=== PATIENT | male | born 1950 | race Caucasian/White ===

== ENCOUNTER 2018-08-08 13:59 | Day surgery (SDC) | payer OTHER ==
[~2018-08-08] VITALS: Ht 175.3 cm; Wt 83.9 kg
[~2018-08-08 13:59] MED LIST: ALPR.5 PO; ASPI81CH PO; ATOR10 PO; ATOR80; ATOR80 PO; Aspir 8181 MG PO; CARV25; CARV25 PO; DIGO.125 PO; GLIM2 PO; LOSA25 PO; LOSA50; LOSA50 PO; METF500; METF500 PO; METF500C PO; METO100ER PO; METO25ER PO; MULVITMIND PO; Norco 7.5-3251 EACH PO; Pravachol40 MG PO; SPIR25; SPIR25 PO; TAMS.4ER; TAMS.4ER PO; THERA1 EACH PO; TORSE20 PO; [UNRECOGNIZED DRUG - OTHER] PO
--- NOTE | 2018-08-08 16:21 | NUR ---
08/08/18 1621 Yasir Jaime History, Chart, Medications and Allergies reviewed before start of procedure.MONITOR INTACT WITH CONTINUOUS PULSE OXIMETRY AND INTERMITTENT BP.3-LEAD EKG REVIEWED WITH PHYSICIAN PRIOR TO START OF PROCEDURE.O2 VIA N/C INTACT THROUGHOUT SEDATION/PROCEDURE. Patient confirms NPO status and agrees with scheduled surgery.See Anesthesia record.
--- NOTE | 2018-08-08 17:31 | NUR ---
Patient up to Ambulate independently. Gait steady. Discharge instructions reviewed with patient. Patient verbalizes understanding. Copy given to patient to take home. Patient States Post-Procedure ride home has been arranged. Discharged via wheelchair to private car for ride home.
== END 2018-08-08 22:48 | disposition home or self-care (01) ==
LOC: ORSCMMR 13:59 → ORSCSDS 15:15 → ORSCMMR 22:48
PROVIDERS: Internal Medicine Gastroenterology
PROC: 0DBL8ZX Excision of Transverse Colon, Via Natural or Artificial Opening Endoscopic, Diagnostic (ICD-10-PCS; principal; 2018-08-08 15:15)
DX: R19.5 Other fecal abnormalities (principal); K57.30 Diverticulosis of large intestine without perforation or abscess without bleeding; K64.8 Other hemorrhoids; I10 Essential (primary) hypertension; I25.2 Old myocardial infarction; G47.33 Obstructive sleep apnea (adult) (pediatric); Z79.899 Other long term (current) drug therapy; Z79.82 Long term (current) use of aspirin
CPT/HCPCS: 82947; 88305; J2370; J2704; J7120

== ENCOUNTER 2021-06-15 09:41 | Inpatient (IN) | payer OTHER ==
[~2021-06-15] VITALS: Ht 177.8 cm; Wt 78.0 kg
[2021-06-15 10:32] LABS: BASOPHILS ABSOLUTE AUTO 0.02 K/mm3 (0.00-0.23); BASOPHILS PERCENT AUTO 0 % (0-2); EOSINOPHILS PERCENT AUTO 2 % (0-6); IMMATURE GRAN ABSOLUTE AUTO 0.02 K/mm3 (0.00-0.10); IMMATURE GRAN PERCENT AUTO 0 % (0-1); LYMPHOCYTES ABSOLUTE AUTO 0.47 K/mm3 (0.84-5.20); LYMPHOCYTES PERCENT AUTO 7 % (21-46); MONOCYTES ABSOLUTE AUTO 0.64 K/mm3 (0.16-1.47); MONOCYTES PERCENT AUTO 10 % (4-13); Mean Corpuscular HGB 30.1 pg (26.0-34.0); Mean Corpuscular HGB Conc 34.4 g/dL (31.5-36.5); Mean Corpuscular Volume 87 fL (80-100); Mean Platelet Volume 11.6 fL (9.1-12.4); NEUTROPHILS ABSOLUTE AUTO 5.34 K/mm3 (1.96-9.15); NEUTROPHILS PERCENT AUTO 81 % (41-73); Platelet Count 110 K/mm3 (150-400); RDW Coefficient Variation 15.3 % (11.7-14.2); RDW Standard Deviation 48.9 fL (35.1-46.3); Red Blood Cell Count 3.66 M/mm3 (4.30-5.90); White Blood Cell Count 6.59 K/mm3 (4.00-11.30)
[2021-06-15 10:55] LABS: Albumin, Blood 3.5 g/dL (3.4-5.0); Albumin/Globulin Ratio 0.9 (0.8-1.8); Bilirubin, Total 1.4 mg/dL (0.1-1.0); Bun/Creatinine Ratio 34.9 (12.0-20.0); Calcium, Blood 9.6 mg/dL (8.5-10.1); Creatinine, Blood 1.92 mg/dL (0.60-1.20); Globulin, Blood 3.7 g/dL (2.2-4.0); Potassium, Blood 3.9 mmol/L (3.5-5.5); Total Protein, Blood 7.2 g/dL (6.4-8.2)
--- NOTE | 2021-06-15 15:00 | NUR ---
Echocardiogram completed.
[2021-06-15] MEDS ORDERED: CARV6.25 PO (18:21)
[2021-06-15] MEDS ORDERED: METO2.5 PO (18:21)
[2021-06-15] MEDS ORDERED: LACT PO (18:22)
[2021-06-15] MEDS ORDERED: ASCO500 PO (18:23)
[2021-06-15] MEDS ORDERED: LOSA25 PO (18:24)
[2021-06-15] MEDS ORDERED: METF500 PO (18:24)
[2021-06-15] MEDS ORDERED: ATOR80 PO (18:25)
[2021-06-15] MEDS ORDERED: ACET500 PO (18:25)
[2021-06-15] MEDS ORDERED: MELA3 PO (18:26)
[2021-06-15] MEDS ORDERED: TRAZ50 PO (18:26)
[2021-06-15] MEDS ORDERED: DOXY100 PO (18:27)
[2021-06-15] MEDS ORDERED: Potassium Chlo20 ME1 PO (18:44)
--- NOTE | 2021-06-15 18:49 | NUR ---
SHIFT SUMMARY PT ADMITTED FOR CHF EXACERBATION. PLAN IS TO DIURESE THE PT OVERNIGHT. HE HAS A HX OF NEUROGENIC BLADDER AND SELF CATHS. VSS. WILL REPORT TO ELAINA ESQUIVEL.
--- NOTE | 2021-06-16 05:31 | NUR ---
SHIFT SUMMARY Patient is being admitted on observation for worsening heart failure, fluid retention and NATHAN. He is AAOX4, No complaint of pain or disconfort noted. His HAS BLE edema and using compression stokings. He self straigh cath, HX of Neurogenic bladder. Patient pleasant with care. We will continue to monitor for any acute changes.
[2021-06-16 06:10] LABS: Bun/Creatinine Ratio 36.4 (12.0-20.0); Calcium, Blood 8.9 mg/dL (8.5-10.1); Creatinine, Blood 1.87 mg/dL (0.60-1.20); Potassium, Blood 4.1 mmol/L (3.5-5.5)
--- NOTE | 2021-06-16 16:40 | NUR ---
SHIFT SUMMARY PATIENT IS ALERT AND ORIENTED, PLEASANT AND COOPERATIVE WITH CARE. PATIENT IS ON RA. PT SELF CATH'S WITH SUPPLIES AT BEDSIDE. PATIENT HAD AN IRON INFUSION THIS SHIFT. PATIENT IS ON TELE. ZOLOFT RESUMED THIS SHIFT. PATIENT'S SPOUSE WAS AT BEDSIDE THIS SHIFT TO HELP GET PATIENT'S AFFAIRS IN ORDER. PATIENT'S SPOUSE WAS INFORMED OF VISITOR POLICY AT THAT TIME. VSS. NO ACUTE CHANGES THIS SHIFT. CALL LIGHT WITHIN REACH.
--- NOTE | 2021-06-17 03:42 | NUR ---
SHIFT SUMMARY Patient AAOX4, denies pain and disconfot at this time. Patient had an uneventful night. Tele monitor in place. Self cath's, Neurogenic bladder. Edema in the lower extremities has improved. He slept better this shift. No complaint voices at this point. We will continue to monitor for acute changes.
[2021-06-17 05:55] LABS: Albumin, Blood 3.2 g/dL (3.4-5.0); Bilirubin, Total 1.8 mg/dL (0.1-1.0); Calcium, Blood 9.3 mg/dL (8.5-10.1); Creatinine, Blood 1.6 mg/dL (0.60-1.20); Globulin, Blood 3.3 g/dL (2.2-4.0); Phosphorus, Blood 4.8 mg/dL (2.5-4.9); Potassium, Blood 3.6 mmol/L (3.5-5.5); Total Protein, Blood 6.5 g/dL (6.4-8.2)
[2021-06-17] MEDS ORDERED: SERT25 PO (12:23)
[2021-06-17] MEDS ORDERED: BUSP5 PO (12:23)
--- NOTE | 2021-06-17 18:41 | NUR ---
SHIFT SUMMARY PATIENT IS ALERT AND ORIENTED X4, PLEASANT AND COOPERATIVE WITH CARE. PATIENT HAS BEEN HAVING EPISODES OF NAUSEA AND VOMITING. MEDICATED PER EMAR. PT REFUSED DINNER. INSULIN HELD PER MD. TELE W/ VTACH AND PVC'S THIS SHIFT. DOCUMENTATION IN CHART. 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 PT RECEIVED IRON SUPPLEMENT THIS SHIFT. VSS. CALL LIGHT WITHIN REACH.
[2021-06-18 05:55] LABS: Hematocrit 30.5 % (37.0-53.0); Hemoglobin 10.4 g/dL (13.5-17.5)
[2021-06-18 06:33] LABS: Albumin, Blood 3.4 g/dL (3.4-5.0); Anion Gap 13 mmol/L (6-16); Blood Urea Nitrogen 72 mg/dL (8-24); Bun/Creatinine Ratio 41.9 (12.0-20.0); CO2, Blood 25 mmol/L (21-32); CPK Creatine Kinase 44 U/L (39-308); Calcium, Blood 9.1 mg/dL (8.5-10.1); Chloride, Blood 85 mmol/L (98-108); Creatinine, Blood 1.72 mg/dL (0.60-1.20); Glomerular Filtration Rate 39 (60-); Glucose, Blood 217 mg/dL (70-99); Phosphorus, Blood 4.6 mg/dL (2.5-4.9); Potassium, Blood 3.3 mmol/L (3.5-5.5); Sodium, Blood 123 mmol/L (136-145); Uric Acid, Blood 9.2 mg/dL (3.5-7.2)
--- NOTE | 2021-06-18 08:01 | NUR ---
Patient in bed and independant in room. Patient had a COVID swab and is on precautions. MD ordered test and precautions. No pain or complaints received from Patient.
[2021-06-18 08:27] LABS: Influenza A, PCR NEGATIVE (NEGATIVE); Influenza B, PCR NEGATIVE (NEGATIVE); Resp Syncytial Virus, PCR NEGATIVE (NEGATIVE); SARS-Cov-2 (COVID-19) PCR, MMC NEGATIVE (NEGATIVE)
[2021-06-18] MEDS ORDERED: ONDA4ODT MM (11:31)
[2021-06-18] MEDS ORDERED: GLIP2.5ER PO (11:31)
--- NOTE | 2021-06-18 11:32 | NUR ---
HOME MEDICATION/FLUID RESTRICTION DR. MARY GAVE THIS RN A VERBAL ORDER TO CONTINUE PT'S HOME MEDICATIONS: ASA 81 MG CHEWABLE TAB DAILY AND MULTIVITAMIN 1 TAB DAILY. VERABL ORDER ALSO GIVEN FOR PT TO BE ON A 1 LITER FLUID RESTRICTION AT HOME.
--- NOTE | 2021-06-18 14:30 | NUR ---
DISCHARGE NOTE PATIENT DISCHARGED [id number] THIS SHIFT VIA WHEELCHAIR WITH SPOUSE. PATIENT AND SPOUSE VERBALIZED UNDERSTANDING OF DISCHARGE INSTRUCTIONS. VSS. AT DISCHARGE. BELONGINGS WITH PATIENT AT DISCHARGE. NOTHING FURTHER TO REPORT.
== END 2021-06-18 13:05 | disposition home or self-care (01) | DRG 291 ==
LOC: ER 09:41 → MEDS 09:42 → ENPENDDIS 06-17 12:22 → MEDS 06-18 13:05
PROVIDERS: Emergency Medicine; Family Medicine; Internal Medicine; Internal Medicine Nephrology; Nurse Practitioner Acute Care; ADMIT Internal Medicine
DX: I13.0 Hypertensive heart and chronic kidney disease with heart failure and stage 1 through stage 4 chronic kidney disease, or unspecified chronic kidney disease (principal); I50.23 Acute on chronic systolic (congestive) heart failure; N17.9 Acute kidney failure, unspecified; E87.1 Hypo-osmolality and hyponatremia; Z20.822 Contact with and (suspected) exposure to COVID-19; E11.22 Type 2 diabetes mellitus with diabetic chronic kidney disease; N18.30 Chronic kidney disease, stage 3 unspecified; T50.1X5A Adverse effect of loop [high-ceiling] diuretics, initial encounter; I25.10 Atherosclerotic heart disease of native coronary artery without angina pectoris; E78.5 Hyperlipidemia, unspecified; N40.0 Benign prostatic hyperplasia without lower urinary tract symptoms; I25.5 Ischemic cardiomyopathy; G47.33 Obstructive sleep apnea (adult) (pediatric); D50.9 Iron deficiency anemia, unspecified; E11.43 Type 2 diabetes mellitus with diabetic autonomic (poly)neuropathy; K31.84 Gastroparesis; F41.9 Anxiety disorder, unspecified; I48.0 Paroxysmal atrial fibrillation; I25.2 Old myocardial infarction; Z95.1 Presence of aortocoronary bypass graft; Z95.810 Presence of automatic (implantable) cardiac defibrillator; Z88.2 Allergy status to sulfonamides; Z79.84 Long term (current) use of oral hypoglycemic drugs; Z79.82 Long term (current) use of aspirin; Z79.899 Other long term (current) drug therapy
CPT/HCPCS: 0241U; 36415; 71045; 76770; 80048; 80053; 80069; 82533; 82550; 82947; 83735; 83880; 83935; 84100; 84133; 84300; 84443; 84484; 84550; 85014; 85018; 85025; 93005; 93010; 93308; 93321; 96372; 96374; 96375; 96376; 99285-25; A9270; G0378; J1644; J1940; J2405; J2916